=== PATIENT | male | born 1950 | race Caucasian/White ===

== ENCOUNTER 2018-05-07 04:48 | Emergency (ER) | payer OTHER, MEDICARE ==
[2018-05-07] MEDS ORDERED: KETOROLAC 30 MG/1 ML SDV IVP ONE (05:02)
[2018-05-07] MEDS ORDERED: ONDANSETRON 4 MG/2 ML VIAL IVP ONE (05:02)
[2018-05-07] MEDS ORDERED: NS 1,000 ML IV ONE (05:02)
[2018-05-07] MEDS ORDERED: HYDROmorphONE/DILAUDID 2 MG/ML INJ IVP ONE (05:22)
--- NOTE | 2018-05-07 05:26 | EDPHY ---
H & P Stated Complaint: L flank pain Time Seen by Provider: 05/07/18 05:01 HPI/ROS: HPI The patient presents with left-sided dull severe flank pain which began at 1:30 a.m. This morning and awoke him from sleep. The pain has been constant and is associated with nausea and vomiting. The patient took an aspirin without any improvement in his pain. He does not have any hematuria or dysuria. He does not have any fevers. He has no prior history of similar pain.. REVIEW OF SYSTEMS Constitutional: No fever, no chills. Eyes: No discharge. ENT: No sore throat. Cardiovascular: No chest pain, no palpitations. Respiratory: No cough, no shortness of breath. Gastrointestinal: See HPI Genitourinary: No hematuria. Musculoskeletal: No back pain. Skin: No rashes. Neurological: No headache. PMHx: Healthy, not on any medications Soc Hx: lives at home with PHYSICAL General Appearance: Alert, no distress Eyes: Pupils equal and round no pallor or injection ENT, Mouth: Mucous membranes moist Respiratory: There are no retractions, lungs are clear to auscultation Cardiovascular: Regular rate and rhythm Gastrointestinal: Abdomen is soft and non-tender, no masses, bowel sounds normal Back: Left-sided flank tenderness Neurological: A&O, moves all extremities Skin: Warm and dry, no rashes Musculoskeletal: Neck is supple non tender Extremities: symmetrical, full range of motion Psychiatric: Patient is oriented X 3, there is no agitation Source: Patient Exam Limitations: No limitations - Personal History Current Tetanus/Diphtheria Vaccine: Unsure Current Tetanus Diphtheria and Acellular Pertussis (TDAP): Unsure - Medical/Surgical History Hx Asthma: No Hx Chronic Respiratory Disease: No Hx Diabetes: No Hx Cardiac Disease: No Hx Renal Disease: No Hx Cirrhosis: No Hx Alcoholism: No Hx HIV/AIDS: No Hx Splenectomy or Spleen Trauma: No Other PMH: Denies - Social History Smoking Status: Former smoker Constitutional: Initial Vital Signs Temperature (C) 37 C 05/07/18 04:51 Heart Rate 63 05/07/18 04:51 Respiratory Rate 18 05/07/18 04:51 Blood Pressure 162/86 H 05/07/18 04:51 O2 Sat (%) 96 05/07/18 04:51 O2 Delivery Mode Room Air Allergies/Adverse Reactions: No Known Allergies Allergy (Verified 10/06/12 20:36) Home Medications: Medication Instructions Recorded Hydrocodone/APAP 5/325 [Peculiar 1 - 2 tab PO Q6H PRN #15 tab 05/07/18 5/325 (*)] Ondansetron Odt [Zofran Odt 4 mg 4 mg PO Q4 PRN #10 tab 05/07/18 (*)] Medical Decision Making - Diagnostics Imaging Results: CT abdomen pelvis without IV contrast demonstrates 3 mm ureteral stone in the distal ureter near the left UVJ with resultant mild hydronephrosis, discussed with the radiologist partner management consultant. Differential Diagnosis: This is a 67-year-old male who presents with several hours of left-sided flank pain, associated with nausea and vomiting which awoke him from sleep. On exam, he is uncomfortable appearing, he has left-sided flank tenderness. Differential diagnosis includes ureterolithiasis, pyelonephritis, less likely AAA. In the emergency department, patient was given medication for pain with improvement in his symptoms. Labs were checked and did reveal hematuria. Initial I-STAT showed potassium of 6 thus BMP was checked and was normal. I feel this was a hemolyzed specimen. The patient had a CT scan performed which showed a 3 mm stone in the distal ureter with hydronephrosis. I feel this is the cause of his symptoms. He did also incidentally have a right renal cyst. As I have discussed these results with him. He feels well enough to go home. He will be discharged with pain medication and referral to Urology. I have explained that he should see his primary care doctor for a follow-up ultrasound for the renal cyst which was found. - Data Points Laboratory Results: Laboratory Results 05/07/18 05:30 05/07/18 06:45 Medications Given: Discontinued Medications Hydrocodone Bitart/Acetaminophen (Peculiar 5/325mg Prepack#6) 1 btl TAKEHOME EDNOW ONE Stop: 05/07/18 06:43 Last Admin: 05/07/18 07:30 Dose: 1 btl Hydromorphone HCl (Dilaudid) 0.5 mg IVP EDNOW ONE Stop: 05/07/18 05:23 Last Admin: 05/07/18 05:35 Dose: 0.5 mg Sodium Chloride (Ns) 1,000 mls @ 0 mls/hr IV ONCE ONE; Wide Open PRN Reason: Protocol Stop: 05/07/18 05:03 Last Admin: 05/07/18 05:34 Dose: 1,000 mls Sodium Chloride (Ns) 1,000 mls @ 0 mls/hr IV EDNOW ONE; Wide Open PRN Reason: Protocol Stop: 05/07/18 06:30 Last Admin: 05/07/18 06:30 Dose: 1,000 mls Ketorolac Tromethamine (Toradol) 15 mg IVP EDNOW ONE Stop: 05/07/18 05:03 Last Admin: 05/07/18 05:34 Dose: 15 mg Ondansetron HCl (Zofran) 4 mg IVP EDNOW ONE Stop: 05/07/18 05:03 Last Admin: 05/07/18 05:34 Dose: 4 mg Point of Care Test Results: Chemistry 05/07/18 05/07/18 06:27 05:25 POC Sodium 140 mEq/L mEq/L (135-145) POC Potassium 6.0 mEq/L H mEq/L (3.3-5.0) POC Chloride 110 mEq/L mEq/L (97-110) POC BUN 41 mg/dL H mg/dL (7-23) POC Creatinine 1.4 mg/dL H mg/dL 1.6 mg/dL H mg/dL (0.7-1.3) (0.7-1.3) POC Glucose 97 mg/dL mg/dL (70-100) ISTAT H&H 05/07/18 06:27 POC Hgb 12.6 gm/dL L gm/dL (13.7-17.5) POC Hct 37 % L % (40-51) Departure - Departure Disposition: Home, Routine, Self-Care Clinical Impression: Renal colic on left side, Renal cyst, right Condition: Good Instructions: Renal Colic (ED) Additional Instructions: Please make sure to drink plenty of fluids. You should take ibuprofen 400 mg every 6 hr as needed for pain. If your pain is more severe, you can take the pain medication as prescribed. Your kidney stone has a good chance of passing on its own. You should follow up with the urologist if your pain continues for more than 1 week. We have also found what appears to be a cyst on your right kidney incidentally. This will need a follow-up ultrasound in the next few months. Your primary care doctor can order this for you. Referrals: Carolynn Babcock MD [Medical Doctor] - As per Instructions Prescriptions: Hydrocodone/APAP 5/325 [Peculiar 5/325 (*)] 1 - 2 tab PO Q6H PRN #15 tab PRN Reason: Pain, Breakthrough Ondansetron Odt [Zofran Odt 4 mg (*)] 4 mg PO Q4 PRN #10 tab PRN Reason: Nausea/Vomiting, Can'T Take Po
[2018-05-07] MEDS ORDERED: HYDROmorphONE/DILAUDID 1 MG/ML INJ ONE (05:31)
[2018-05-07 05:54] LABS: PLATELET COUNT 240 10^3/uL (150-400)
[2018-05-07] MEDS: NS 1,000 ML IV ONE ×2 (06:30→06:42)
[2018-05-07] MEDS ORDERED: HYDROCOD/APAP 5/325 PREPACK#6 BTL TAKEHOME ONE (06:42)
[2018-05-07 07:32] VITALS: BP 123/72
== END 2018-05-07 07:31 | disposition home or self-care (01) ==
DX: N28.1 Cyst of kidney, acquired (principal); E86.9 Volume depletion, unspecified; Z87.891 Personal history of nicotine dependence
CPT/HCPCS: 74176; 96361; 96374; 96375; 99285; J1170; J1885; J2405; 82435-PO; 82565-PO; 82947-PO; 84132-PO; 84295-PO; 84520-PO; 85014-PO

== ENCOUNTER → 2018-06-03 | Outpatient (CLI) | payer OTHER, MEDICARE | LOC: FIMAGING 16:06 | PROVIDERS: ATTEND Internal Medicine | DX: N28.1 Cyst of kidney, acquired (principal) ==